=== PATIENT | female | born 1965 | race American Indian/Alaskan Native ===

== ENCOUNTER 2016-12-13 09:07 | Inpatient (IN) | payer MEDICAID ==
[2016-12-13 09:08] VITALS: BMI 36.2
[2016-12-13 09:11] VITALS: O2SAT 99
--- NOTE | 2016-12-13 09:12 | ED PDOC ---
Psych Transfer Clearance - Clearance Statement Clearance Statement: Reviewed vital signs, lab results and transfer papers. Patient clinically stable for psychiatric admission.
[2016-12-13] MEDS: Aspirin 325 mg EC Tablets PO SCH (11:18)
[2016-12-13] MEDS ORDERED: DiphenhydrAMINE 50 mg/ml Inj IM PRN (14:54)
[2016-12-13] MEDS ORDERED: Magnesium Hydroxide Susp 30 ml UD PO PRN (14:54)
[2016-12-13] MEDS ORDERED: Alum-Mag Hydrox-Simethicone Susp (30 mL) PO PRN (14:54)
--- NOTE | 2016-12-13 15:01 | PCM.PSYCH ---
Initial Psychiatric Evaluation - Initial Psychiatric Evaluation Type of Admission: Voluntary Legal Status: Capacity Chief Complaint (in patient's own words): i stopped my medications Patient's Reaction to Hospitalization: cooperative History of Present Illness and Precipitating Events: 51 yo female. living in [place]. history of hospitalization in past and dx with bipolar disorder/schizoaffective. has been taking seroquel for years and doing well. quit meds about 3 years ago. has been smoking mj daily. she reports hearing voices, trouble sleeping and was feeling distressed with some passive suicidal thoughts. she is currently sedated from meds and her early am arrival to floor. Current Medications: Active Medications Generic Name Dose Route Start Last Admin Trade Name Freq PRN Reason Stop Dose Admin Acetaminophen 650 mg 12/13/16 14:54 Tylenol 325mg Tab PO Q4 PRN Pain, moderate (4-7) Al Hydrox/Mg Hydrox/Simethicone 30 ml 12/13/16 14:54 Maalox Plus 30 Ml PO Q4 PRN Dyspepsia Amlodipine Besylate 10 mg 12/13/16 10:30 12/13/16 11:16 Norvasc PO 10 mg DAILY ZEINAB Administration Aspirin 325 mg 12/13/16 10:15 12/13/16 11:18 Ecotrin PO 325 mg DAILY ZEINAB Administration Clonidine HCl 0.3 mg 12/13/16 13:00 12/13/16 13:08 Catapres PO 0.3 mg TID ZEINAB Administration Diphenhydramine HCl 50 mg 12/13/16 14:54 Benadryl IM Q6 PRN Extrapyramidal S/S Unable PO Diphenhydramine HCl 50 mg 12/13/16 14:54 Benadryl PO Q6 PRN Extrapyramidal Symptoms Haloperidol 5 mg 12/13/16 14:54 Haldol PO Q4 PRN Agitation Haloperidol Lactate 5 mg 12/13/16 14:54 Haldol IM Q4 PRN Agitation, Unable to Take PO Hydrochlorothiazide 25 mg 12/13/16 10:15 12/13/16 11:16 Hydrodiuril PO 25 mg DAILY ZEINAB Administration Labetalol HCl 100 mg 12/13/16 10:30 12/13/16 11:28 Trandate PO 100 mg BID ZEINAB Administration Lorazepam 2 mg 12/13/16 14:54 Ativan IM Q4 PRN Anxiety/Agitation,Unable PO Lorazepam 2 mg 12/13/16 14:54 Ativan PO Q4 PRN Anxiety/Agitation Magnesium Hydroxide 30 ml 12/13/16 14:54 Milk Of Magnesia PO HS PRN Constipation Minoxidil 2.5 mg 12/13/16 10:30 12/13/16 11:16 Minoxidil PO 2.5 mg DAILY ZEINAB Administration Past Psychiatric History - Past Psychiatric History Previous Treatment History: Inpatient Prior Professional Help: 16 years ago in. states she's treated at [facility] History of Abuse: unable to ask secondary to sedation History of ETOH/Drug Use: smokes mj daily per her report. denies other drug use. History of Family Illness: denies Pertinent Medical Hx (Current Medical&Sleep Prob, Allergies): Allergies Allergy/AdvReac Type Severity Reaction Status Date / Time No Known Allergies Allergy Verified 12/13/16 09:20 Amlodipine Besylate [Norvasc] 20 mg PO DAILY 01/11/15 QUEtiapine [SEROquel] 600 mg PO HS 01/11/15 Aspirin [Ecotrin] 325 mg PO DAILY 12/01/15 Labetalol [Trandate] 100 mg PO BID #14 tab 12/01/15 Quetiapine Fumarate [Seroquel] 300 mg PO .AM 08/01/16 Minoxidil [Minoxidil] 2.5 mg PO DAILY 12/12/16 hydroCHLOROthiazide [Hydrodiuril] 25 mg PO DAILY 12/12/16 cloNIDine [Catapres] 0.3 mg PO TID 12/13/16 hypertension Review of Systems - Psychiatric Psychiatric: As Per HPI, Abnormal Sleep Pattern, Anxiety, Depression, Hallucinations, Irritability, Suicidal Ideation Mental Status Examination - Personal Presentation Personal Presentation: Looks stated age, Obese - Affect Affect: Constricted - Motor Activity Motor Activity: Calm - Reliability in Providing Information Reliability in Providing Information: Other (pt sedated, sleepy) - Speech Speech: Organized - Mood Mood: Depressed - Formal Thought Process Formal Thought Process: Hallucinations, Loosening of associations - Hallucinations/Delusions Hallucinations: Auditory - Obsessions/Compulsions Obsessions: No Compulsions: No - Cognitive Functions Orientation: Person, Place, Situation, Time Sensorium: Drowsy Attention/Concentration: Attentive Abstract Thinking: [place] Estimate of Intelligence: Average Judgement: Intact, as evidence by: Insight regarding need for hospitalization Memory: Recent intact, as evidence by: Ability to recall events of the day - Risk Risk: Suicidal (denies any plan or intent) - Strength & Assets Inventory Strength & Assets Inventory: Intelligence DSM 5 DX - DSM 5 DSM 5 Diagnosis: schizoaffective by history cannabis abuse - Recommended/Plan of Treatment Treatment Recommendations and Plan of Treatment: admit to 3np for safety and observation gather collateral information provide supportive therapy adjust medications- restart seroquel at lower dose disposition planning hospitalist consult Projected ELOS: 2-3days Prognosis: fair
--- NOTE | 2016-12-13 16:16 | PCM.BM ---
<Oxana Canales - Last Filed: 12/13/16 16:14> Treatment Plan Problems - Problems identified on initial assessmt Altered Thought Process Date Initiated: 12/13/16 Time Initiated: 16:15 Assessment reference: NA Status: Active Priority: 1 Medication nonadherence Date Initiated: 12/13/16 Time Initiated: 16:16 Assessment reference: NA Status: Active Priority: 2 Altered Sleep Patterns Date Initiated: 12/13/16 Time Initiated: 16:16 Assessment reference: NA Status: Active Priority: 3 Treatment assets and liabiliti Patient Assests: ADL independent, physically healthy, good support system, negotiates basic needs, good past tx response Patient Liabilities: substance abuse, other (poor coping skills) - Milieu Protocol Maintain good personal hygiene: daily Encourage regular showers, daily Remind patient to perform daily oral care, daily Assist patient to perform ADL's Maintain personal safety: every shift Educate patient to report safety concerns to staff, every shift Monitor environment for contraband/sharps Medication safety: Monitor for expected outcome, potential side effects: every shift, Assess barriers to learning: every shift, Assess readiness for medication education: every shift Milieu Narrative: admit to 3np for safety and observation gather collateral information provide supportive therapy adjust medications- restart seroquel at lower dose disposition planning hospitalist consult Discharge/Continuing Care - Education Needs Education Needs: Patient Medication, Patient Diagnosis/Disease Process, Patient Coping Skills, Patient Activities of Daily Living, Patient Personal Hygiene/ Grooming - Discharge Discharge Criteria: Tolerates medication w/o severe side effects, Free of Suicidal thoughts (free of audio/visual hallucinations), Normal sleep pattern - Treatment Team Participation Patient/Family/SO Statement: admit to 3np for safety and observation gather collateral information provide supportive therapy adjust medications- restart seroquel at lower dose disposition planning hospitalist consult <Allan Gill - Last Filed: 12/14/16 13:20> Family Contact Family contact: Patient agrees to contact, Family has been contacted by patient , Telephone contact initiated by staff Family contact name: Mehreen (Daughter) Family contacted how many times per week?: 2 Family contact comment: Pt's daughter offers no complaints and is in agreement with D/C plan. - Outside Agency Agency 1 Care involvment: Following patient during stay, Information-sharing Agency contact name: Pt denied currently being connected to outpatient services. - Goals for Treatment Patient goals for treatment: Pt reported that she would like to be referred to an outpatient provider as she has no one to prescribe her medications. Pt reported that she wants to be connected to therapy. She speaks to her family about her illness, but they do not understand her condition.
[2016-12-14 01:24] VITALS: RESP 18
[2016-12-14 09:18] VITALS: BP 148/92; PULSE 58; TEMP 97.7
[2016-12-14] MEDS: Aspirin 325 mg EC Tablets PO SCH (09:54)
--- NOTE | 2016-12-14 11:32 | CP.PCM.HP ---
History of Present Illness - History of Present Illness History of Present Illness: CC: A 51yoF with H/O HTN and Bipolar DO is admitted for Bipolar with Behaviour. Transferred from [facility] [place] [place]. No suicidal or Homicidal at thitime. Present on Admission - Present on Admission Any Indicators Present on Admission: No History of DVT/PE: No History of Uncontrolled Diabetes: No Urinary Catheter: No Decubitus Ulcer Present: No Review of Systems - Review of Systems All systems: reviewed and no additional remarkable complaints except Past Patient History - Infectious Disease Hx of Infectious Diseases: None - Tetanus Immunizations Tetanus Immunization: Unknown - Past Social History Smoking Status: Light Smoker < 10 Cigarettes Daily Alcohol: None Drugs: Cannabis - CARDIAC Hx Cardiac Disorders: Yes Hx Hypertension: Yes - PULMONARY Hx Respiratory Disorders: No (smoker) - NEUROLOGICAL Hx Neurological Disorder: Yes Hx Transient Ischemic Attacks (TIA): Yes (13yrs ago) - HEENT Hx HEENT Problems: Yes (WEARS RX GLASSES) - RENAL Hx Chronic Kidney Disease: Yes Hx Kidney Stones: Yes - ENDOCRINE/METABOLIC Hx Endocrine Disorders: Yes Hx Hypothyroidism: Yes (Does not take medication) - HEMATOLOGICAL/ONCOLOGICAL Hx Blood Disorders: No - INTEGUMENTARY Hx Dermatological Problems: No - MUSCULOSKELETAL/RHEUMATOLOGICAL Hx Musculoskeletal Disorders: Yes Hx Falls: Yes - GASTROINTESTINAL Hx Gastrointestinal Disorders: No - GENITOURINARY/GYNECOLOGICAL Hx Genitourinary Disorders: No - PSYCHIATRIC Hx Bipolar Disorder: Yes Hx Substance Use: Yes - SURGICAL HISTORY Hx Breast Biopsy: Yes Other/Comment: right breast biopsy - ANESTHESIA Hx Anesthesia: Yes Hx Anesthesia Reactions: No Hx Malignant Hyperthermia: No Meds Allergies/Adverse Reactions: Allergies Allergy/AdvReac Type Severity Reaction Status Date / Time No Known Allergies Allergy Verified 12/13/16 09:20 Physical Exam - Constitutional Appears: Well - Head Exam Head Exam: ATRAUMATIC, NORMAL INSPECTION, NORMOCEPHALIC - Eye Exam Eye Exam: EOMI, Normal appearance, PERRL Pupil Exam: NORMAL ACCOMODATION, PERRL - ENT Exam ENT Exam: Mucous Membranes Moist, Normal Exam - Neck Exam Neck exam: Positive for: Normal Inspection - Respiratory Exam Respiratory Exam: Clear to Auscultation Bilateral, NORMAL BREATHING PATTERN - Cardiovascular Exam Cardiovascular Exam: REGULAR RHYTHM, +S1, +S2 - GI/Abdominal Exam GI & Abdominal Exam: Normal Bowel Sounds, Soft. absent: Tenderness - Extremities Exam Extremities exam: Positive for: normal inspection - Back Exam Back exam: NORMAL INSPECTION - Neurological Exam Neurological exam: Alert, CN II-XII Intact, Normal Gait, Oriented x3, Reflexes Normal - Psychiatric Exam Psychiatric exam: Normal Affect, Normal Mood - Skin Skin Exam: Dry, Intact, Normal Color, Warm Results - Vital Signs Recent Vital Signs: Last Vital Signs Temp 97.7 F 12/14/16 09:17 Pulse 58 L 12/14/16 09:54 Resp 18 12/14/16 09:17 BP 148/92 H 12/14/16 09:54 Pulse Ox 99 12/13/16 09:10 - Labs Labs: Laboratory Results - last 24 hr 12/14/16 07:36 Triglycerides 84 Cholesterol 133 LDL Cholesterol Direct 70 HDL Cholesterol 34 TSH 3rd Generation 0.18 L Assessment & Plan (1) Hallucination Assessment and Plan: Bipolar DO Continue psych Follow Up Status: Acute (2) Hypertension Assessment and Plan: Fairly Controlled Continue Current Care Status: Chronic (3) Low TSH level Assessment and Plan: Free T3 and T4 Status: Chronic
--- NOTE | 2016-12-14 12:20 | PCM.PYCHPN ---
Psychiatric Progress Note - Psychiatric Progress Note Patient seen today, length of contact: in treatment team Patient Chief Complaint: i feel much better Problems Identified/Issues Discussed: not sedated today. states she was smoking mj because she stopped her medication and couldn't get refills. she is feeling much better with seroquel restarted. she denies any a/v hallucinations or other medication side effects. Medication Change: Yes Medical Record Reviewed: Yes Mental Status Examination - Cognitive Function Orientation: Person, Place, Situation, Time Memory: Intact Attention: WNL Concentration: WNL Association: WNL Fund of Knowledge: [facility] Decription of patient's judgement and insights: fair - Mood Mood: Neutral - Affect Affect: Broad - Speech Speech: Appropriate - Formal Thought Process Formal Thought Process: No Impairment - Suicidal Ideation Suicidal Ideation: No - Homicidal Ideation Homicidal Ideation: No Goal/Treatment Plan - Goal/Treatment Plan Need for Continued Stay: Remain at risks for inpatient hospitalization, Discharge may exacerbated symptoms Progress Toward Problem(s) and Goals/Treatment Plan: schizoaffective disorder cannabis abuse increase seroquel to 100mg bid and tomorrow to 100mg/200mg discharge tomorrow morning f/u with outpt clinic at [facility]. Estimated Date of D/C: 12/15/16
--- NOTE | 2016-12-14 14:02 | PCM.PYCHDC ---
Mental Status Examination - Mental Status Examination Orientation: Person, Place, Situation, Time Memory: Intact Mood: Neutral Affect: Broad Speech: Appropriate Attention: WNL Concentration: WNL Association: WNL Fund of Knowledge: WNL Formal Thought Process: No Impairment Description of patient's judgement and insight: fair Psychotic Thoughts and Behaviors: denies any a/v hallucinations Suicidal Ideation: No Current Homicidal Ideation?: No Plan: pt denies any suicidal or homicidal thoughts Discharge Summary - Discharge Note Reason for Hospitalization: pt reported auditory hallucinations in context of 3 months without meds and smoking mj daily Psychiatric History (includes Medical, Family, Personal Hx): history of schizoaffective disorder Laboratory Data: Abnormal Lab Results 12/14/16 12/14/16 07:36 07:36 Hemoglobin A1c 4.9 Triglycerides 84 Cholesterol 133 LDL Cholesterol Direct 70 HDL Cholesterol 34 TSH 3rd Generation 0.18 L Consultations:: List each consultation separately and include: 1. Reason for request. 2. Findings. 3. Follow-up Consultations: seen by hospitalist Summary of Hospital Course include:: 1. Description of specific treatment plan utilized for patients during their course of treatmen. 2. Summarize the time- course for resolution of acute symptoms and/or regressed behaviors. 3. Describe issues identified and worked on during hospitalization. 4. Describe medication utilized. 5. Describe medical problems identified and treated. 6. Reassessment of suicide risk Summary of Hospital Course: 51 yo female. living in [place]. history of hospitalization in past and dx with bipolar disorder/schizoaffective. has been taking seroquel for years and doing well. quit meds about 3 years ago. has been smoking mj daily. she reports hearing voices, trouble sleeping and was feeling distressed with some passive suicidal thoughts. she is currently sedated from meds and her early am arrival to floor. hospital course admitted to [facility] and oriented to the unit. started back on seroquel at lower dose as she had been off for 3 months. she tolerated the dose and had a resolution of her psychotic symptoms. she was agreeing to follow up with aftercare. he blood pressure was well controlled after she was restarted on her medications by the hospitalst. she was future oriented and goal directed and denying any si/hi at the time of discharge. - Final Diagnosis (DSM 5) Condition upon Discharge: FAIR DSM 5: schizoaffective disorder cannabis abuse Disposition: HOME/ ROUTINE Follow-up Treatment Plan: follow up with aftercare as directed take medications as prescribed do not use alcohol, tobacco or other illicit substances call 911 if any suicidal or homicidal thoughts Prescriptions/Medication Reconciliation: QUEtiapine [Seroquel] 100 mg PO BID #30 tab - Smoking Cessation Smoking Cessation Medication prescribed: No Reason for not providing: declined - Antipsychotic Medications Pt discharged on 2 or more routine antipsychotic medications: No
== END 2016-12-14 16:05 | disposition home or self-care (01) | DRG 430 ==
LOC: H.ER 09:07 → H.PSYCH 09:11
PROVIDERS: ADMIT Psychiatry & Neurology Psychiatry; ATTEND Psychiatry & Neurology Psychiatry
PROC: GZ3ZZZZ Medication Management (ICD-10-PCS; principal; 2016-12-13)
PROC: GZHZZZZ Group Psychotherapy (ICD-10-PCS; 2016-12-13)
PROC: GZ56ZZZ Individual Psychotherapy, Supportive (ICD-10-PCS; 2016-12-13)
DX: F25.0 Schizoaffective disorder, bipolar type (principal); R45.851 Suicidal ideations; I12.9 Hypertensive chronic kidney disease with stage 1 through stage 4 chronic kidney disease, or unspecified chronic kidney disease; N18.9 Chronic kidney disease, unspecified; E03.9 Hypothyroidism, unspecified; F12.10 Cannabis abuse, uncomplicated; F17.210 Nicotine dependence, cigarettes, uncomplicated; Z86.73 Personal history of transient ischemic attack (TIA), and cerebral infarction without residual deficits; Z87.442 Personal history of urinary calculi